=== PATIENT | female | born 1975 | race Caucasian/White ===

== ENCOUNTER → 2021-03-12 10:50 | Outpatient (CLI) | payer OTHER ==
[~2021-03-12 10:50] MED LIST: KETO10TA2 PO; MEDROLPACK PO; NORFLEX100MG PO; ZEBUTAL CAPSULE1 CAP PO
== END | disposition home or self-care (01) ==
LOC: PPH VACUNA 10:50
DX: Z23 Encounter for immunization (principal)

== ENCOUNTER 2021-03-20 12:16 | Emergency (ER) | payer OTHER ==
[~2021-03-20] VITALS: Ht 162.6 cm; Wt 60.8 kg
[~2021-03-20 12:16] MED LIST changes: -KETO10TA2 PO; -MEDROLPACK PO; -NORFLEX100MG PO
[2021-03-20] MEDS ORDERED: KETO10TA2 PO (15:09)
[2021-03-20] MEDS ORDERED: NORFLEX100MG PO (15:09)
[2021-03-20] MEDS ORDERED: MEDROLPACK PO (15:11)
== END 2021-03-20 15:32 | disposition home or self-care (01) ==
LOC: ER 12:16
DX: M54.5 Low back pain (principal)

== ENCOUNTER 2021-04-02 08:00 | Outpatient (CLI) | payer OTHER ==
[~2021-04-02 08:00] MED LIST changes: +KETO10TA2 PO; +MEDROLPACK PO; +NORFLEX100MG PO
== END 2021-04-02 08:30 | disposition home or self-care (01) ==
LOC: PPH VACUNA 08:00
DX: Z23 Encounter for immunization (principal)

== ENCOUNTER 2022-07-07 06:48 | Day surgery (SDC) | payer OTHER | END 2022-07-07 15:25 | disposition home or self-care (01) | LOC: AMB-ENDOS 06:48 | PROVIDERS: ATTEND Colon & Rectal Surgery | DX: K63.5 Polyp of colon (principal); Z20.822 Contact with and (suspected) exposure to COVID-19; Z86.010 Personal history of colon polyps; R15.9 Full incontinence of feces; K64.4 Residual hemorrhoidal skin tags ==

== ENCOUNTER 2023-04-29 22:27 | Inpatient (IN) | payer OTHER ==
[~2023-04-29] VITALS: Ht 162.6 cm; Wt 59.9 kg
[~2023-04-29 22:27] MED LIST changes: +ONDANSETRON ODT4 MG PO; +PEPCID40 MG PO
[2023-05-02] MEDS ORDERED: TURMERIC ROOT5000 GM (21:36)
[2023-05-02] MEDS ORDERED: CINNAMON BARK1 GM (21:36)
[2023-05-02] MEDS ORDERED: EPIDIOLEX100 MG/1 M (21:36)
[2023-05-02] MEDS ORDERED: DAILY VALUE1 EACH (21:37)
[2023-05-02] MEDS ORDERED: OMEGA 3-6-9 CO400 MG (21:37)
[2023-05-02] MEDS ORDERED: MAGNESIUM500 MG (21:38)
[2023-05-02] MEDS ORDERED: VITAMIN D310 MCG/1 M (21:38)
== END 2023-05-04 13:51 | disposition home or self-care (01) | DRG 379 ==
LOC: ER 22:27 → SURG 04-30 08:29
PROVIDERS: ADMIT Colon & Rectal Surgery; ATTEND Colon & Rectal Surgery
DX: K62.5 Hemorrhage of anus and rectum (principal); D50.0 Iron deficiency anemia secondary to blood loss (chronic); K64.5 Perianal venous thrombosis